=== PATIENT | male | born 1960 | race Caucasian/White ===

== ENCOUNTER 2021-06-17 21:28 | Emergency (ER) | payer BC, OTHER ==
[2021-06-17 21:36] VITALS: TEMP 97.4
[2021-06-17] MEDS ORDERED: SODIUM CHLORIDE 0.9% 1,000 ML IV STA (22:04)
[2021-06-17] MEDS ORDERED: HYDROmorphone 1 MG/ML 1 ML SYRINGE IVP STA ×2 (22:04→23:02)
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
[2021-06-17 22:36] LABS: Basophils # (A) 0.2 k/uL (0-0.2); Basophils % (A) 1 %; Eosinophils # (A) 0.2 k/uL (0-0.7); Eosinophils % (A) 1 %; HGB 13.5 gm/dL (13.0-17.5); Lymphocytes # (A) 2.9 k/uL (1.0-4.8); Lymphocytes % (A) 15 %; MCHC 33.9 g/dL (31.0-37.0); MCV 94.6 fL (80.0-100.0); Mean Platelet Volume 7.6; Monocytes # (A) 2.8 k/uL (0-1.0); Monocytes % (A) 15 %; Neutrophils # (A) 12.8 k/uL (1.3-7.7); Neutrophils % (A) 66 %; Platelet Count 324 k/uL (150-450); RBC 4.23 m/uL (4.30-5.90); RDW 12.6 % (11.5-15.5); WBC 19.3 k/uL (3.8-10.6)
--- NOTE | 2021-06-17 22:39 | XR ---
EXAMINATION TYPE: XR forearm RT DATE OF EXAM: 06/17/2021 COMPARISON: NONE HISTORY: Arm pain TECHNIQUE: 2 views FINDINGS: Radius and ulna appear intact. I see no fracture nor dislocation. Carpal bones are in intac t. Elbow joint spaces are normal. There is no sign of elbow joint effusion. IMPRESSION: Negative radius and ulna exam.
--- NOTE | 2021-06-17 22:42 | XR ---
EXAMINATION TYPE: XR femur RT DATE OF EXAM: 06/17/2021 COMPARISON: NONE HISTORY: Pain TECHNIQUE: 4 views FINDINGS: There are vertical fractures through the medial aspect of the right acetabulum and also the right ischium. There is displacement up to 1 cm. The acetabulum is otherwise intact. The femur is in tact with no evidence of femoral fracture. Knee joint is anatomic. No sign of knee joint effusion. IMPRESSION: Acute fractures of the right hemipelvis involving the superior and inferior pubic rami. L imited exam. No femoral fracture.
[2021-06-17 22:45] LABS: INR 0.9 (<1.2); Partial Thromboplastin Time 22.7 sec (22.0-30.0); Prothrombin Time 10.4 sec (9.0-12.0)
[2021-06-17 22:55] LABS: ALT 38 U/L (4-49); AST 38 U/L (17-59); African American GFR (CKD) >90 (>60 ml/min/1.73 sqM); Albumin 4.3 g/dL (3.5-5.0); Alkaline Phosphatase 89 U/L (38-126); Anion Gap 14 mmol/L; Blood Urea Nitrogen 13 mg/dL (9-20); Calcium 8.8 mg/dL (8.4-10.2); Carbon Dioxide 18 mmol/L (22-30); Chloride 97 mmol/L (98-107); Glucose 98 mg/dL (74-99); Non-African American GFR(CKD) >90 (>60 ml/min/1.73 sqM); Potassium 3.5 mmol/L (3.5-5.1); Sodium 129 mmol/L (137-145); Total Bilirubin 0.5 mg/dL (0.2-1.3)
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
[2021-06-17 23:11] LABS: Alcohol 102 mg/dL
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
[2021-06-17] MEDS ORDERED: LIDOCAINE URO-JET JELLY 2% 5 ML KIT URETHRAL ONE (23:36)
[2021-06-18 00:16] LABS: Appearance,Urine Clear (Clear); Bilirubin,Urine Negative (Negative); Blood,Urine Negative (Negative); Color,Urine Yellow; Glucose,Urine (UA) Negative (Negative); Ketones,Urine Negative (Negative); Leukocyte Esterase,Urine Negative (Negative); Nitrite,Urine Negative (Negative); PH, Urine 5.5 (5.0-8.0); Protein,Urine Trace (Negative); Specific Gravity,Urine 1.036 (1.001-1.035); Urobilinogen,Urine <2.0 mg/dL (<2.0)
[2021-06-18 00:36] LABS: Amphetamine Screen,Urine Not Detected (NotDetected); Barbiturate Screen,Urine Not Detected (NotDetected); Benzodiazepines Screen,Urine Not Detected (NotDetected); Cocaine Screen,Urine Not Detected (NotDetected); Methadone Screen, Urine Not Detected (NotDetected); Opiate Screen,Urine Detected (NotDetected); Oxycodone Screen, Urine Not Detected (NotDetected); Phencyclidine Screen,Urine Not Detected (NotDetected); Tricyclic Antidepressant,Urine Not Detected (NotDetected); Urn Cannabinoid Scrn Detected (NotDetected)
[2021-06-18 01:15] VITALS: BP 113/87; PULSE 89; RESP 16
== END 2021-06-18 01:11 | disposition short-term general hospital (02) ==
LOC: EC 21:28
DX: S57.81XA Crushing injury of right forearm, initial encounter (principal); S32.592A Other specified fracture of left pubis, initial encounter for closed fracture; S32.591A Other specified fracture of right pubis, initial encounter for closed fracture; K66.1 Hemoperitoneum; E78.5 Hyperlipidemia, unspecified; I10 Essential (primary) hypertension; F17.200 Nicotine dependence, unspecified, uncomplicated; Z87.442 Personal history of urinary calculi; V48.2XXA Person on outside of car injured in noncollision transport accident in nontraffic accident, initial encounter; Y92.830 Public park as the place of occurrence of the external cause
CPT/HCPCS: 99291; 96374; 96376; 96361 ×3; 36415; 93005; 86900; 86901; 80053; 84484; 85025; 85610; 85730; 86850; 81003; 80306; 80320; 73552; 73090; 72125; 70486; 70450; 71260; 74177; J1170; Q9967